=== PATIENT | male | born 1965 | race Two or more races ===

== ENCOUNTER 2016-10-04 13:57 | Emergency (ER) | payer OTHER ==
[~2016-10-04 13:57] MED LIST: ALDACTONE50 M1 PO; AMITRIPTYLINE H25 M1 PO; ASPIR 8181 M1 PO; BACLOFEN10 M1 PO; CARVEDILOL25 M1 PO; CHLORPROMAZINE25 M1 PO; GAS RELIEF80 M1 PO; MAALOX MAXIMUM355 M1 PO; METOCLOPRAMIDE10 M2 PO; NEURONTIN100 M1 PO; PRINIVIL10 M1 PO; PROTONIX40 M2 PO; REGLAN10 M2 PO; VITAMIN E400 UNI6 PO; ZOFRAN4 M2 PO; ZOFRAN8 M1 PO
[2016-10-04 14:42] LABS: BASO % 0.7 % (0-2); BASO ABSOLUTE COUNT 0.1 tho/cmm (0.0-0.2); EOSINOPHIL ABSOLUTE COUNT 1.6 tho/cmm (0.0-0.7); HCT-HEMATOCRIT 39.2 % (36.0-53.5); HGB-HEMOGLOBIN 13.5 gm/dl (13.5-17.0); IMMATURE GRANULOCYTES ABSOLUTE 0.03 tho/cmm (0-0.03); IMMATURE GRANULOCYTES PERCENT 0.4 % (0-0.3); LYMPH % 22.3 % (20-45); LYMPH ABSOLUTE COUNT 1.9 tho/cmm (0.8-4.5); MCH (MEAN CORPUSCULAR HGB) 30.2 pg (28.0-32.0); MCHC MEAN CORPUSCULAR HGB CONC 34.4 % (32.0-36.0); MCV (MEAN CELL VOLUME) 87.7 fl (82.0-96.0); MONO % 7.2 % (0-12); MONOCYTE ABSOLUTE COUNT 0.6 tho/cmm (0.0-1.2); NEUTROPHIL ABSOLUTE COUNT 4.3 tho/cmm (1.6-8.0); NEUTROPHIL-AUTOMATED 4.3 tho/cmm (1.6-8.0); NEUTROPHILS % 50.1 % (40-80); PLATELET COUNT 321 tho/cmm (150-450); RED BLOOD COUNT 4.47 mil/cmm (4.40-5.70); RED CELL DISTRIBUTION WIDTH 13.3 % (12.4-16.4); WHITE BLOOD COUNT 8.5 tho/cmm (4.0-10.0)
[2016-10-04 14:53] LABS: ANION GAP 12 mmol/L (0-20); BLOOD UREA NITROGEN 12 mg/dl (6-24); CALCIUM 8.9 mg/dl (8.5-10.5); CARBON DIOXIDE-VENOUS 27 mmol/L (22-32); CHLORIDE 100 mmol/l (96-110); CREATININE 1.19 mg/dl (0.60-1.30); EOS % 19.3 % (0-7); GLUCOSE 98 mg/dL (70-110); POTASSIUM 4.2 mmol/L (3.7-5.1); SODIUM 135 mmol/L (135-145); eGFR VALUE FOR BLACK 81 mL/Min
[2016-10-04] MEDS ORDERED: LASIX20 M1 PO (15:07)
[2016-10-04] MEDS ORDERED: MAGNESIUM OXID400 M1 PO (15:08)
[2016-10-04] MEDS ORDERED: NEURONTIN100 M1 PO (15:08)
== END 2016-10-04 16:01 ==
LOC: EDMED 13:57
PROVIDERS: Emergency Medicine
DX: T80.211A Bloodstream infection due to central venous catheter, initial encounter (principal); I50.9 Heart failure, unspecified